=== PATIENT | male | born 1955 | race Caucasian/White ===

== ENCOUNTER → 2020-04-22 10:16 | Outpatient (REF) | payer BC, SELFPAY | LOC: HO.SL 10:16 | PROVIDERS: Visit Provider Internal Medicine | DX: G47.39 Other sleep apnea (principal); R06.83 Snoring; R35.1 Nocturia | CPT/HCPCS: 95806 ==

== ENCOUNTER 2022-02-02 11:32 | Outpatient (REF) | payer MEDICARE, SELFPAY ==
--- NOTE | ~2022-02-02 | XR_ITS ---
EXAMINATION: XR FOOT, LEFT CLINICAL INFORMATION: Left foot pain. Evaluate for a fracture. COMPARISON: None TECHNIQUE: AP, lateral, and oblique views of the left foot. FINDINGS: No acute fracture or dislocation. Mild joint space narrowing with small marginal osteophytes at the talonavicular and calcaneocuboid joints as well as at the 1st metatarsophalangeal joint and hallux sesamoids. Tiny plantar calcaneal spur. XR/XR foot LT min 3V IMPRESSION: No acute fracture or dislocation. 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
== END 2022-02-02 11:33 | disposition home or self-care (01) ==
LOC: HO.HMGCX 11:32
PROVIDERS: PCP Internal Medicine; Visit Provider Internal Medicine
DX: M79.672 Pain in left foot (principal)
CPT/HCPCS: 73630

== ENCOUNTER 2024-12-26 13:48 | Outpatient (AMB) | payer MEDICARE, OTHER, SELFPAY ==
--- NOTE | 2024-12-26 13:54 | AM.OFFWIN_ITS ---
Intake Vital Signs 12/26/24 13:55 Height 5 ft 11 in Weight 276 lb BMI 38.5 BP 112/80 Blood Pressure Location Rt brachial Position Sitting Pulse 81 Pulse Source Pulse Oximeter Temp 98.3 F Temp Source Oral Pulse Oximetry (%) 95 Oxygen Delivery Method Room Air Intake Visit Reasons: EP Toe infection? Ingrown Intake Note: pt presents with left great toe inflammation and pain at the nail x3 months Allergies No Known Allergies Allergy (Verified 12/26/24 13:57) Do you need a note to return to daycare/school/sports/work: No HPI HPI Comments History of Present Illness Details History of Present Illness - The patient is a 69-year-old male pres enting with an infected left great toe, suspected to be due to an ingrown toenail. - The toe is described as very tender an d red, with no drainage or pus present. - Previous management included hydrogen peroxide and sea salt soaks, but the infection has not resolved. - A history of a resolved fungal nail in fection on the same toe was noted. - A similar issue occurred 54 years ago on a different toe, treated with numbing and nail removal. Physical Exam General: Cooperative, healthy appearing, comfortable, no acute distress and well developed Orientation: Patient oriented x3 Limitations: No limitations Head: Normal to inspection Ears: Hearing grossly normal bilaterally Nose: Normal External nose present Face and sinus: Normal facial exam Eyes: Appearance normal, both eyes and all related structures Neck: Normal visual inspection and Yes full ROM Respiratory: Normal respiratory effort and able to speak in complete sentences. Skin: No rashes or lesions noted Neuro: Patient oriented x3 Extremities: Left 1st toenail: lateral and inferior nail has no drainage, slight edema and erythema, TTP, ingrown toenail Review of Systems Const All systems reviewed & are unremarkable except as noted in HPI and below Physical Exam Vital Signs: Last Vital Signs Temp 98.3 F 12/26/24 13:55 Pulse 81 12/26/24 13:55 BP 112/80 12/26/24 13:55 Pulse Ox 95 12/26/24 13:55 Oxygen Delivery Method Room Air 12/26/24 13:55 BMI result Body Mass Index 38.5 Assessment & Plan Assessment & Plan (1) Ingrown left big toenail: Code(s): L60.0 - Ingrowing nail Plan: - Doesn't look amenable to drainage. - Prescribe antibiotics to manage the infection. - Referral to a electrical contractor for potential ingrown nail removal and further management is recommended. - Advise against the use of hydrogen peroxide for ongoing treatment as it may impede healing. Recommended Epsom salts. Patient was informed and verbally consented to the use of an ambient scribe for clinic note documentation during this visit. (2) Paronychia of great toe: Code(s): L03.039 - Cellulitis of unspecified toe Plan: as above Orders: Referrals Podiatry Referral L60.0 - Ingrowing nail Medications: New cephalexin 500 mg PO Q6H 28 caps 0RF Coding Level of Care Code Est Pt Level 3 (73207) Diagnoses Ingrown left big toenail L60.0 Paronychia of great toe L03.039
[2024-12-26 13:55] VITALS: BP 112/80; PULSE 81; TEMP 36.8; O2SAT 95; BMI 38.5
== END 2024-12-26 14:32 | disposition home or self-care (01) ==
PROVIDERS: PCP Internal Medicine; Visit Provider Physician Assistant
DX: L60.0 Ingrowing nail (principal); L03.039 Cellulitis of unspecified toe

== ENCOUNTER → 2024-12-26 13:48 | Outpatient (BNVA) | payer MEDICARE, OTHER, SELFPAY | PROVIDERS: PCP Internal Medicine; Visit Provider Physician Assistant | DX: L60.0 Ingrowing nail (principal); L03.039 Cellulitis of unspecified toe | CPT/HCPCS: 99212 ==

== ENCOUNTER 2025-01-26 10:27 | Outpatient (AMB) | payer MEDICARE, OTHER, SELFPAY ==
--- NOTE | 2025-01-26 10:33 | A.OFFPC_ITS ---
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: No Accompanied by: Self / Same As Patient Allergies No Known Allergies Allergy (Verified 01/26/25 14:49) Medication List - Last Reconciled 01/26/25 by Ofelia Batista PA-C apixaban (Eliquis) 5 mg PO BID 90 days aspirin (Adult Aspirin Regimen) 81 mg PO DAILY carvedilol 12.5 mg PO BID losartan 50 mg PO DAILY multivitamin 1 tab PO DAILY Tobacco use date assessed: 01/26/25 Fall risk assessment: No Falls in past year Last assessed Fall Risk: 01/26/25 Dental Screening Dental Screen Date: 01/26/25 Did you have a dental visit in the last 12 months?: No Did you have a dental problem in the last 6 months where you did not have access to dental care?: No HPI Establish Care HPI Details The patient is a 69-year-old male presenting with atrial fibrillation and medication refill needs. He has a history of atrial fibrillation and is on Eliquis and aspirin for anticoagulation and heart protection. He was informed of a slightly increased risk of stroke due to atrial fibrillation. The patient experienced a myocardial infarction on April 03, 2020, initially mistaking it for COVID-19 symptoms. He drove himself to emergency care, where a heart attack was confirmed, and a catheterization was performed without the need for a stent. He is on carvedilol for heart rate control and losartan for blood pressure management, with a stable blood pressure of 135/84 mmHg. Preventative care measures include colon cancer screening with Cologuard, with no family history of colon cancer. 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 1. Little interest or pleasure in doing things: not at all 2. Feeling down, depressed, or hopeless: not at all 3. Trouble falling or staying asleep, or sleeping too much: not at all 4. Feeling tired or having little energy: not at all 5. Poor appetite or overeating: not at all 6. Feeling bad about yourself - or that you are a failure or have let yourself or your family down: not at all 7. Trouble concentrating on things, such as reading the newspaper or watching television: not at all 8. Moving or speaking so slowly that other people could have noticed. Or the opposite - being so fidgety or restless that you have been moving around a lot more than usual: not at all 9. Thoughts that you would be better off or of hurting yourself in some way: not at all Total score: 0 Depression Screening Interpretation: Negative Depression Screening Done: Yes 67978 - PHQ-9 Billing: Yes Source: Developed by Drs. Abhijit Myrick, Tonie Mcknight, Estuardo Batista and colleagues, with an educational corey from [employer]. Thrive Questionnaire Date Thrive assessed: 01/26/25 I am a: Patient What is your living situation today?: I have a steady place to live Within the past 12 months, did the food you bought not last and you didn't have the money to get more?: Never true Within the past 12 months, did you worry whether your food would run out before you got money to buy more?: Never true Do you have trouble paying for medicines?: No Do you have trouble getting transportation to medical appointments?: No Do you have trouble paying your heating and electricity bill?: No Do you have trouble taking care of your child, family member or friend?: No Do you have trouble with day-to-day activities such as bathing, preparing meals, shopping, managing finances, etc.?: No Are you currently unemployed and looking for a job?: No Are you interested in more education?: No Please select the resources that you would like help with: None THRIVE Score: 0 AUDIT C Alcohol Use Questionnaire (AUDIT-C) 1. How often do you have a drink containing alcohol?: 2-4 times a month 2. How many drinks containing alcohol do you have on a typical day when you are drinking?: 1 or 2 3. How often do you have six or more drinks on one occasion?: Never Total Score: 2 Score Reviewed/Action Taken: No CARLOTA-7 AMB Questionnaire CARLOTA-7 Date CARLOTA - 7 assessed: 01/26/25 Feeling nervous, anxious, or on edge: 0 = Not at all Not being able to stop or control worryin = Not at all Worrying too much about different things: 0 = Not at all Trouble relaxin = Not at all Being so restless that it is hard to sit still: 0 = Not at all Becoming easily annoyed or irritable: 0 = Not at all Feeling afraid as if something awful might happen: 0 = Not at all Total CARLOTA-7 score (0-4 normal; 5-9 mild; 10-14 moderate; 15-21 severe): 0 Source: Developed by Drs. Abhijit Myrick, Tonie Mcknight, Estuardo Batista and colleagues, with an educational corey from [employer]. CARLOTA-7 Assessment Billing CARLOTA-7 Assessment Tool: CARLOTA-7 Assessment 36627 Review of Systems Const Details: - Cardiovascular: Denies chest pain, palpitations, or syncope. All systems reviewed & are unremarkable except as noted in HPI and below Physical exam (Primary Care) Vital Signs: Last Vital Signs Temp 97.8 F 01/26/25 10:35 Pulse 78 01/26/25 10:35 Resp 14 01/26/25 10:35 BP 135/84 01/26/25 10:35 Pulse Ox 98 01/26/25 10:35 Oxygen Delivery Method Room Air 01/26/25 10:35 Care Plan Goal for BP management: <140/90 at Goal BMI result Body Mass Index 36.4 BMI Assessment/Plan discussion: High BMI High, discussed plan: lifestyle, weight reduction, dietary, physical activity and alcohol moderation Tobacco/Smoking Status: Tobacco use Status Tobacco use date assessed 01/26/25 01/26/25 10:46 Patient Tobacco Use Status Never used Tobacco 01/26/25 10:46 Tobacco use type Cigar 01/26/25 10:46 PHQ-9: PHQ-9 Score PHQ-9: Total score 0 01/26/25 14:31 Depression Screening Interpretation: Negative Thrive Assessment: Date of Thrive Assessment Date Thrive assessed 01/26/25 01/26/25 10:46 Const Other: Appearance: Alert. Oriented X3. No acute distress. Head: Normal external exam. Normocephalic. Atraumatic. Eyes: Pupils are equal, round, and reactive to light. Extraocular movements intact. Conjunctiva and sclera normal. Eyelids normal. Ears: External auditory canal normal. Tympanic membranes normal. Throat: Pharynx normal. Uvula midline. Moist mucous membranes. Neck: Normal inspection. Neck supple. Full range of motion. Cardiovascular: Normal heart rate and rhythm. Heart sound normal. No murmurs noted. Pulses normal throughout. Respiratory: No respiratory distress. Painless inspiration. Breath sounds normal. No wheezes/rales/rhonchi noted. Chest nontender. No accessory muscle usage noted or decreased air movement noted. Back: Full range of motion noted. Skin: Skin warm and dry. Normal skin color. Normal skin turgor. No rashes/lesions/lacerations noted. Extremities: No lower extremity edema. Extremities exhibit normal range of motion. Neuro: Oriented X 3. No motor deficit. No sensory deficit. Reflexes normal. Coding Level of Care Code New Pt Level 4 (51020) Complex EM visit Add On G2211 Diagnoses Atrial fibrillation I48.91 Hypertension I10 History of myocardial infarction I25.2 Preventative health care Z00.00 Additional Codes PHQ-9 - 99506 - PHQ-9 Billing: Yes ([id number]) CARLOTA-7 Assessment Billing - CARLOTA-7 Assessment Tool: CARLOTA-7 Assessment 34682 ([id number]) Assessment & Plan Assessment & Plan (1) Atrial fibrillation: Code(s): I48.91 - Unspecified atrial fibrillation Category: Medical Plan: The patient will continue on Eliquis for anticoagulation to manage atrial fibrillation and reduce the risk of stroke. A 90-day supply with three refills was prescribed. (2) Hypertension: Code(s): I10 - Essential (primary) hypertension Category: Medical Plan: The patient is on losartan 50 mg to maintain stable blood pressure and prevent hypertension due to atrial fibrillation. (3) History of myocardial infarction: Code(s): I25.2 - Old myocardial infarction Category: Medical Plan: The patient experienced a myocardial infarction on April 03, 2020, and underwent catheterization without stent placement. He continues on aspirin for heart protection. (4) Preventative health care: Code(s): Z00.00 - Encounter for general adult medical examination without abnormal findings Category: Medical Plan: The patient agreed to undergo colon cancer screening with Cologuard due to the absence of family history of colon cancer. Plan Plan Patient was informed and verbally consented to the use of an ambient scribe for clinic note documentation during this visit. 1. Atrial Fibrillation The patient will continue on Eliquis for anticoagulation to manage atrial fibrillation and reduce the risk of stroke. A 90-day supply with three refills was prescribed. 2. Hypertension The patient is on losartan 50 mg to maintain stable blood pressure and prevent hypertension due to atrial fibrillation. 3. History Of Myocardial Infarction The patient experienced a myocardial infarction on April 03, 2020, and underwent catheterization without stent placement. He continues on aspirin for heart protection. 4. Preventative Care: Colon Cancer Screening With Stool Test The patient agreed to undergo colon cancer screening with Cologuard due to the absence of family history of colon cancer. During the visit, we discussed the continuation of Eliquis for atrial fibrillation management and the importance of maintaining stable blood pressure with losartan. We also reviewed the patient's history of myocardial infarction and the role of aspirin in heart protection. Preventative care measures, including colon cancer screening with Cologuard, were discussed, and the patient agreed to proceed with the test. Orders: Referrals Cologuard Test Z12.11 - Encounter for screening for malignant neoplasm of colon Medications: Changed From apixaban (Eliquis) 5 mg PO BID To apixaban (Eliquis) 5 mg PO BID 180 tabs 3RF 90 days Patient Instructions: - Continue taking Eliquis as prescribed for atrial fibrillation. - Maintain current medication regimen, including losartan and aspirin. - Undergo colon cancer screening with Cologuard as discussed. - Schedule follow-up appointments every six months for ongoing management.
[2025-01-26 10:35] VITALS: BP 135/84; PULSE 78; RESP 14; TEMP 36.6; O2SAT 98; BMI 36.4
== END 2025-01-26 11:07 | disposition home or self-care (01) ==
LOC: HO.HMCSH 10:27
PROVIDERS: PCP Internal Medicine; Visit Provider Physician Assistant Medical
DX: I48.91 Unspecified atrial fibrillation (principal); I10 Essential (primary) hypertension; I25.2 Old myocardial infarction; Z00.00 Encounter for general adult medical examination without abnormal findings

== ENCOUNTER → 2025-01-26 10:27 | Outpatient (BNVA) | payer MEDICARE, OTHER, SELFPAY | PROVIDERS: PCP Internal Medicine; Visit Provider Physician Assistant Medical | DX: Z00.00 Encounter for general adult medical examination without abnormal findings (principal); Z76.89 Persons encountering health services in other specified circumstances; I48.91 Unspecified atrial fibrillation; I10 Essential (primary) hypertension; I25.2 Old myocardial infarction; Z79.01 Long term (current) use of anticoagulants | CPT/HCPCS: 96127; 99202 ==